=== PATIENT | male | born 1955 | race Caucasian/White ===

== ENCOUNTER 2016-12-23 19:53 | Emergency (ER) | payer OTHER ==
[2016-12-23 20:47] LABS: BASOPHIL 0.1 % (0-2); EOSINOPHIL 0.8 % (0-5); HCT 43.6 % (42.0-52.0); HGB 15.3 g/dl (13.2-18.0); LYMPHOCYTE 14.8 % (15-48); MCH 30.4 pg (25.0-31.0); MCHC 35.1 g/dL (32.0-36.0); MCV 86.7 fL (78.0-100.0); MONOCYTE 6.7 % (0-12); MPV 9.8 fL (6.0-9.5); NEUTROPHIL 77.6 % (41-80); PLT 239 K/uL (150-400); RBC 5.03 M/uL (4.70-6.00); RDW 13.2 % (11.5-14.0); WBC 11.3 K/uL (4.0-10.5)
[2016-12-23 20:53] LABS: INR 1.03 (0.9-1.2); PROTHROMBIN TIME 12.6 SECONDS (11.4-13.2); PTT 23.7 SECONDS (24.3-32.1)
[2016-12-23 20:59] LABS: ALBUMIN 4.5 g/dL (3.5-5.0); CREATININE 1.1 mg/dL (0.7-1.2); GLOBULIN (CALCULATION) 3.3 g/dL (2.2-4.2); POTASSIUM 3.6 mmol/L (3.5-5.1); TOTAL PROTEIN 7.8 g/dL (6.4-8.3)
[2016-12-23 21:01] LABS: CKMB 2.01 ng/mL (0.97-4.94); TROPONIN T < 0.010 ng/mL
== END 2016-12-23 22:10 | disposition home or self-care (01) ==
LOC: FER 19:53
PROVIDERS: Emergency Medicine
DX: H81.02 Meniere's disease, left ear (principal); I11.9 Hypertensive heart disease without heart failure; I25.10 Atherosclerotic heart disease of native coronary artery without angina pectoris; Z95.5 Presence of coronary angioplasty implant and graft; Z79.899 Other long term (current) drug therapy
CPT/HCPCS: 36415; 70450; 71010; 80053; 82550; 82553; 84484; 85025; 85610; 85730; 93005; 94760; J2405; J3360